=== PATIENT | female | born 1995 ===

== ENCOUNTER 2018-10-23 18:58 | Emergency (ER) | payer OTHER ==
[~2018-10-23] VITALS: Ht 157.5 cm; Wt 56.7 kg
[2018-10-23] MEDS ORDERED: KETO10TA2 PO (22:37)
== END 2018-10-23 22:50 ==
LOC: ER 18:58
DX: S33.5XXA Sprain of ligaments of lumbar spine, initial encounter (principal); V80.010A Animal-rider injured by fall from or being thrown from horse in noncollision accident, initial encounter; Y93.89 Activity, other specified; Y92.89 Other specified places as the place of occurrence of the external cause; Y99.8 Other external cause status